=== PATIENT | female | born 1940 | race Caucasian/White ===

== ENCOUNTER 2017-12-06 00:42 | Inpatient (IN) | payer MEDICARE, OTHER ==
[2017-12-05 15:27] LABS: INR 1.01
[2017-12-06] VITALS (17 sets, daily range): BP systolic 113–158; BP diastolic 66–87
[~2017-12-06] VITALS: Ht 160 cm; Wt 65.8 kg
[~2017-12-06 00:42] MED LIST: DOCU-416 PO; GABA-549 PO; IBUP-56 PO; LACT10SO82 PO; LACT1CAP6 PO; MIRT-22 PO; MULT-1372 PO; OMEP-137 PO; OMEP40CA48 PO; [UNRECOGNIZED DRUG - CODE] TOP; [UNRECOGNIZED DRUG - CODE] TP
[2017-12-06] MEDS ORDERED: DEXAMETHASONE SOD 4 MG/ML VIAL ONE (08:02)
[2017-12-06] MEDS ORDERED: ONDANSETRON 4 MG/2 ML VIAL ONE (08:02)
[2017-12-06] MEDS ORDERED: LIDOCAINE MPF 1% 5 ML VIAL ONE (08:02)
[2017-12-06] MEDS ORDERED: PROPOFOL EMUL(*) 10MG/ML 20 ML 20 ML ONE (08:02)
[2017-12-06] MEDS ORDERED: TRANEXAMIC AC 1000 MG/10ML SDV 1,000 MG in DEXTROSE 5% 50 ML BAG 50 ML IV ONE (08:55)
[2017-12-06] MEDS ORDERED: MIDAZOLAM 2 MG/2 ML VIAL IVP PRN (08:55)
[2017-12-06] MEDS ORDERED: NORMOSOL R SOLN(*) 1000 ML BAG 1,000 ML IV PRN ×2 (08:55→12:50)
[2017-12-06] MEDS ORDERED: ceFAZolin(*) 1 GM VIAL 1 GM in NS(*) 0.9% 100 ML ADDVANT BAG 100 ML IVPB ONE (08:55)
[2017-12-06] MEDS ORDERED: cloNIDine EPIDUR INJ 100MCG/ML 40 MCG, ROPIVACAINE 0.5% 20 ML VIAL 25 ML, EPINEPHrine H... INJ ONE (08:55)
[2017-12-06] MEDS ORDERED: LIDOCAINE/SOD BICARB 8.4% SYR ID ONE (09:55)
[2017-12-06] MEDS ORDERED: fentaNYL CITR 100 MCG/2 ML AMP ONE (10:09)
[2017-12-06] MEDS ORDERED: PHENYLEPHRINE 10 MG/1 ML VIAL ONE ×2 (10:10→10:57)
[2017-12-06] MEDS ORDERED: NS(*) 0.9% 100 ML BAG 0 ML ONE (10:20)
[2017-12-06] MEDS ORDERED: ePHEDrine 25 MG/5 ML DISP.SYR IVP ONE (10:38)
[2017-12-06] MEDS ORDERED: NS(*) 0.9% 250 ML BAG 250 ML ONE (11:00)
[2017-12-06] MEDS ORDERED: MAGNESIUM HYDROXIDE* 30ML UDCP PO PRN (12:50)
[2017-12-06] MEDS ORDERED: FLUSH 10 ML SYR IVP PRN (12:50)
[2017-12-06] MEDS ORDERED: PROMETHAZINE 25 MG/ML 1 ML AMP IVP PRN (12:50)
[2017-12-06] MEDS ORDERED: APAP/HYDROCODONE 325/7.5 TAB PO PRN (12:50)
[2017-12-06] MEDS ORDERED: BISACODYL 10 MG SUPP PR PRN (12:50)
[2017-12-06] MEDS ORDERED: ONDANSETRON 4 MG/2 ML VIAL IVP PRN (12:50)
--- NOTE | 2017-12-06 13:12 | RADIOLOGY IMAGING REPORT ---
[place] [facility] [place] NAME: Nevaeh Trent : 1940 MR: [id number] V: [id number] EXAM DATE: ORDERING PHYSICIAN: KARON FREEDMAN TECHNOLOGIST: Location: [facility] Patient: Nevaeh Trent : 1940 Visit/Account:[id number] Date of Sevice: 12/06/2017 Technique: KNEE LIMITED LEFT HISTORY: POST OP LEFT TOTAL KNEE Comparison studies: None FINDINGS: There is no acute fracture. The alignment of the left knee is maintained. Noted is a left k nee arthroplasty. Lucency is seen within the distal left femur proximal left tibia consistent with pr evious hardware. Expected adjacent postoperative findings are identified. IMPRESSION: 1. Left knee arthroplasty without evidence of acute hardware complication. Report Dictated By: Sedrick Solorzano DO at 12/06/2017 1:06 PM Report E-Signed By: Sedrick Solorzano DO at 12/06/2017 1:07 PM WSN:[id number]
--- NOTE | 2017-12-06 14:35 | Hospitalist Progress Note ---
Subjective Progress Notes Subjective Patient seen post-op. She reports doing well. No CP/SOB/N/V. Reviewed PMHx and medications. Physical Exam Vital Signs Date Time Temp Pulse Resp B/P (MAP) Pulse Ox O2 Delivery O2 Flow Rate FiO2 12/06/17 13:45 97.7 69 16 131/77 (95) 96 Nasal Cannula 2.0 Intake and Output 12/07/17 07:00 Intake Total 1900 ml Output Total 600 ml Balance 1300 ml Intake IV Total 1900 ml Output Urine Total 600 ml General Appearance: Alert, Awake Cardiovascular: Regular Rate and Rhythm (with soft systolic murmur) Respiratory: Clear to Auscultation GI: Soft and Non-Tender Assessment and Plan Problems: (1) S/P knee replacement Status: Acute Assessment & Plan: She appears stable post-op. She has no history of DVT/PE. Will place on aspirin 325mg daily. (2) GERD (gastroesophageal reflux disease) Status: Chronic Assessment & Plan: Continue PPI therapy. Protonix while here (omeprazole at home). (3) Chronic back pain Status: Chronic Assessment & Plan: Continue gabapentin. UMA DE LA VEGA MD Dec 06, 2017 14:35
[2017-12-06] MEDS: traMADol 50 MG TAB PO PRN ×2 (15:05→21:26)
[2017-12-06] MEDS: ACETAMINOPHEN 500 MG TAB PO SCH ×3 (15:52→22:30)
[2017-12-06] MEDS ORDERED: ESZO1TAB PO (16:36)
[2017-12-06] MEDS ORDERED: ESZOPICLONE 2 MG TAB PO PRN (16:45)
[2017-12-06] MEDS: ceFAZolin 1 GM VIAL IVP SCH (17:13)
[2017-12-06] MEDS ORDERED: ASPIRIN 325 MG ENTERIC COATED PO ONE (21:00)
[2017-12-06] MEDS ORDERED: GABAPENTIN 100 MG CAP PO SCH (21:00)
[2017-12-06] MEDS: MIRTAZAPINE 15 MG TAB PO SCH (21:26)
[2017-12-07] VITALS (74 sets, daily range): BP systolic 72–164; BP diastolic 46–90; Ht 160 cm; Wt 65.8 kg
[2017-12-07] MEDS: ceFAZolin 1 GM VIAL IVP SCH (01:06)
[2017-12-07] MEDS: traMADol 50 MG TAB PO PRN ×5 (03:36→21:43)
[2017-12-07] MEDS: ACETAMINOPHEN 500 MG TAB PO SCH ×4 (03:36→21:00)
[2017-12-07] MEDS: GABAPENTIN 100 MG CAP PO SCH ×3 (08:19→18:00)
[2017-12-07] MEDS: ASPIRIN 325 MG ENTERIC COATED PO SCH (08:19)
[2017-12-07] MEDS: PANTOPRAZOLE SOD 40 MG TABEC PO SCH (08:19)
--- NOTE | 2017-12-07 08:29 | Hospitalist Progress Note ---
Subjective Progress Notes Subjective She reports doing well. She would like to leave Monge cath in place "until I see if I can make it to the bathroom". She usually does self-cath 4-6 times a day. Physical Exam Vital Signs Date Time Temp Pulse Resp B/P (MAP) Pulse Ox O2 Delivery O2 Flow Rate FiO2 12/07/17 08:02 97.7 73 18 124/72 (89) 95 Nasal Cannula 0.5 General Appearance: Alert, Awake Result Diagram: 12/07/17 0526 Assessment and Plan Problems: (1) S/P knee replacement Status: Acute Assessment & Plan: She appears stable post-op. She has no history of DVT/PE. She is on aspirin 325mg daily for DVT prophylaxis. Will leave Monge cath in place and resume self cath when mobilizing. (2) GERD (gastroesophageal reflux disease) Status: Chronic Assessment & Plan: Continue PPI therapy. Protonix while here (omeprazole at home). (3) Chronic back pain Status: Chronic Assessment & Plan: Continue gabapentin. Exam Sepsis Risk: No Definite Risk UMA DE LA VEGA MD Dec 07, 2017 08:29
--- NOTE | 2017-12-07 10:12 | EKG ---
FACILITY: [facility] PATIENT NAME: GILLIAN MÁRQUEZ : [id number] MR: [id number] V: [id number] EXAM DATE: ORDERING PHYSICIAN: UMA DE LA VEGA TECHNOLOGIST: Test Reason : Blood Pressure : / mmHG Vent. Rate : 071 BPM Atrial Rate : 071 BPM P-R Int : 130 ms QRS Dur : 086 ms QT Int : 410 ms P-R-T Axes : 038 040 058 degrees QTc Int : 445 ms Sinus rhythm Widespread T flattening is non-specific V6 absent Abnormal ECG No previous ECGs available Confirmed by VIOLET COLEMAN ([id number]) on 12/07/2017 10:25:41 AM Referred By: Confirmed By:VIOLET COLEMAN
[2017-12-07 10:16] LABS: PLATELET COUNT, AUTOMATED 189 K/uL (150-450)
[2017-12-07] MEDS ORDERED: IOPAMIDOL 76% 75 ML INFUS BTL 75 ML ONE (10:23)
[2017-12-07] MEDS ORDERED: NS 0.9% 150 ML BAG 150 ML ONE (10:23)
--- NOTE | 2017-12-07 10:24 | Hospitalist Progress Note ---
Subjective Progress Notes Subjective Patient had acute decompensation in status with unresponsiveness, no palpable pulse, no respirations, and hypoxia. She had chest compressions for approximately 30 seconds. She had spontaneous return of pulse, BP. She was placed on monitor and appeared to possibly have a junctional rhythm, but immediately had return to sinus rhythm. She did awaken and is able to answer questions and follow simple commands. Glucose was 96. Initial EKG showed sinus rhythm without significant ST-T changes. Physical Exam Vital Signs Date Time Temp Pulse Resp B/P (MAP) Pulse Ox O2 Delivery O2 Flow Rate FiO2 12/07/17 08:02 97.7 73 18 124/72 (89) 95 Nasal Cannula 0.5 General Appearance: Other (She prefers to keep eyes closed, but does answer questions and follow simple commands.) Neuro: Other (moves all four extremities purposefully) Cardiovascular: Regular Rate and Rhythm (with soft systolic murmur) Respiratory: Clear to Auscultation Chest: Other (tender over distal sternum) GI: Soft and Non-Tender Extremities: Warm, Perfused Result Diagram: 12/07/17 0526 Assessment and Plan Problems: (1) Cardiorespiratory arrest Status: Acute Assessment & Plan: She has had spontaneous return of circulation. She actually appears reasonably stable at this time. Will transfer to ICU for further evaluation. I would suspect possible dysrhythmia vs. PE vs. ischemic cardiac event. Check labs, including troponin. Get CT pulmonary angiogram. Monitor on telemetry. Further evaluation/treatment pending results. (2) S/P knee replacement Status: Acute Assessment & Plan: She has no history of DVT/PE. She has been on aspirin 325mg daily for DVT prophylaxis. Will leave Monge cath in place. (3) GERD (gastroesophageal reflux disease) Status: Chronic Assessment & Plan: Continue PPI therapy. Protonix while here (omeprazole at home). (4) Chronic back pain Status: Chronic Assessment & Plan: Continue gabapentin. Exam Sepsis Risk: No Definite Risk UMA DE LA VEGA MD Dec 07, 2017 10:23
[2017-12-07] MEDS ORDERED: KCL (*) 20 MEQ/100 ML PREMIX 100 ML IV ONE ×2 (10:25→13:00)
--- NOTE | 2017-12-07 10:29 | EKG ---
FACILITY: [facility] PATIENT NAME: GILLIAN MÁRQUEZ : [id number] MR: [id number] V: [id number] EXAM DATE: ORDERING PHYSICIAN: UMA DE LA VEGA TECHNOLOGIST: Bryan Cage Reason : Blood Pressure : / mmHG Vent. Rate : 069 BPM Atrial Rate : 069 BPM P-R Int : 130 ms QRS Dur : 084 ms QT Int : 430 ms P-R-T Axes : 000 168 093 degrees QTc Int : 460 ms Suspect arm lead reversal, interpretation assumes no reversal Normal sinus rhythm Possible Lateral infarct , age undetermined Abnormal ECG When compared with ECG of 07-DEC-2017 09:53, QRS axis shifted right Lateral infarct is now present Confirmed by MALGORZATA HALL ([id number]) on 12/07/2017 11:54:38 PM Referred By: Confirmed By:MALGORZATA HALL
--- NOTE | 2017-12-07 11:11 | RADIOLOGY IMAGING REPORT ---
FACILITY: [facility] [place] PATIENT NAME: Nevaeh Trent : 1940 MR: [id number] V: [id number] EXAM DATE: ORDERING PHYSICIAN: UMA DE LA VEGA TECHNOLOGIST: Location: [facility] [place] Patient: Nevaeh Trent : 1940 Visit/Account:[id number] Date of Sevice: 12/07/2017 CTA CHEST WW/O CNTR (PULM ANG) Provided history: cardiorespiratory arrest/recent knee surgery Additional pertinent history: none TECHNIQUE: Pulmonary embolus protocol - Thin-slice axial imaging of the chest was performed during maximal pulmo nary arterial opacification with intravenous nonionic iodinated contrast. 3D coronal slab MIPs and 2D reconstructions in the coronal and sagittal planes were performed to aid in pulmonary embolus detect ion. Geneticist images have been stored on PACS. EKG gating: no Contrast: 75 ml Isovue 370 One of the following dose optimization techniques was utilized in the performance of this exam: Autom ated exposure control; adjustment of the mA and/or kV according to the patient's size; or use of an i terative reconstruction technique. Specific details can be referenced in the facility's radiology C T exam operational policy. COMPARISON STUDIES: none FINDINGS: Angiographic Findings: Pulmonary arteries: There are no filling defects in the main, right, left, lobar, segmental or visual ized sub-segmental branches of the pulmonary arterial system. The main pulmonary artery is mildly prominent measuring 35 mm compared to 30 mm for the adjacent asce nding aorta. Thoracic aorta: negative. Additional non-angiographic findings: Lungs / pleura / angely: Mild symmetric dependent atelectasis. No acute infiltrate or effusion. Jacey tral airways are widely patent. Lower neck: 7 mm low-attenuation round nodule lower pole left lobe of the thyroid is very likely be nign. Mediastinum: negative Heart / pericardium: Mild biventricular enlargement and mild left atrial enlargement. No CT signs of right heart strain. Other Vessels: negative Body wall: negative Upper abdomen: Benign granulomata of the spleen. Lymph nodes: negative Bones: negative IMPRESSION: 1. No CT evidence of acute pulmonary embolism. 2. Enlarged central pulmonary arteries suggests pulmonary hypertension. Etiology unclear from this exam. No obvious shunt and no advanced destructive pulmonary parenchymal disease. Report Dictated By: Jamie Parker MD at 12/07/2017 10:58 AM Report E-Signed By: Jamie Parker MD at 12/07/2017 11:05 AM WSN:[id number]
[2017-12-07] MEDS: NS(*) 0.9% 1000 ML BAG 1,000 ML IV PRN ×3 (11:12→13:59)
[2017-12-07] MEDS ORDERED: APAP/HYDROCODONE 325/5 TAB PO PRN (11:15)
[2017-12-07] MEDS ORDERED: IV BOLUS 500 ML IVSOL IV ONE (13:20)
[2017-12-07] MEDS: MIRTAZAPINE 15 MG TAB PO SCH (21:42)
[2017-12-08] VITALS (25 sets, daily range): BP systolic 94–156; BP diastolic 45–107
[2017-12-08] MEDS: ACETAMINOPHEN 500 MG TAB PO SCH ×4 (03:00→20:48)
[2017-12-08] MEDS: traMADol 50 MG TAB PO PRN ×3 (04:05→22:41)
[2017-12-08] MEDS: NS(*) 0.9% 1000 ML BAG 1,000 ML IV PRN ×3 (04:07→21:32)
[2017-12-08 05:50] LABS: PLATELET COUNT, AUTOMATED 173 K/uL (150-450)
[2017-12-08] MEDS ORDERED: KCL (*) 20 MEQ/100 ML PREMIX 100 ML IV ONE (07:05)
[2017-12-08] MEDS: GABAPENTIN 100 MG CAP PO SCH ×3 (08:36→18:26)
[2017-12-08] MEDS: ASPIRIN 325 MG ENTERIC COATED PO SCH (08:37)
[2017-12-08] MEDS: PANTOPRAZOLE SOD 40 MG TABEC PO SCH (08:37)
--- NOTE | 2017-12-08 11:32 | Hospitalist Progress Note ---
Subjective Progress Notes Subjective This patient was admitted for knee replacement, but developed pulseless arrest yesterday. Patient Complains of: Cardiovascular: No: Chest Pain Respiratory: No: Shortness of Breath Physical Exam Vital Signs Date Time Temp Pulse Resp B/P (MAP) Pulse Ox O2 Delivery O2 Flow Rate FiO2 12/08/17 10:30 87 13 121/73 (89) 96 Nasal Cannula 1.0 12/08/17 08:00 98.0 Intake and Output 12/09/17 07:00 Intake Total 110 ml Output Total 600 ml Balance -490 ml Intake Oral 0 ml IV Total 110 ml Output Urine Total 600 ml Neuro: No Gross deficits Eyes: PERRLA Cardiovascular: Regular Rate and Rhythm Respiratory: Clear to Auscultation Extremities: No Edema Integumentary: No Cyanosis Result Diagram: 12/08/17 0512/08/17 05 Item Value Date Time Troponin I < 0.012 ng/ml 12/07/17 1429 Troponin I < 0.012 ng/ml 12/08/[address] chest reviewed. Assessment and Plan Problems: (1) Cardiorespiratory arrest Status: Acute Assessment & Plan: She developed pulseless arrest on postoperative day #1. She did receive compressions and had return of circulation. She remained stable in the ICU overnight. Her troponin series was negative. However, her EKG has shown changes consistent with infarction. A CT scan showed pulmonary hypertension, but no evidence of embolism. An echocardiogram has been ordered. She is on treatment with aspirin. (2) S/P knee replacement Status: Acute Assessment & Plan: She is on aspirin prophylaxis. (3) GERD (gastroesophageal reflux disease) Status: Chronic Assessment & Plan: She is on chronic treatment with Prilosec. (4) Chronic back pain Status: Chronic Assessment & Plan: She is on chronic treatment with gabapentin. Exam Sepsis Risk: No Definite Risk ANTONIA MURRAY DO Dec 08, 2017 11:32
--- NOTE | 2017-12-08 19:48 | OPERATIVE REPORT 1 ---
EVENT DATE: December 06, 2017 SURGEON: Joe Tristan MD ANESTHESIOLOGIST: Gamal Coleman MD ANESTHESIA: Spinal, followed by general. TRANSCRIBER: ALIDA Pollack PREOPERATIVE DIAGNOSIS Left knee degenerative joint disease. POSTOPERATIVE DIAGNOSIS Left knee degenerative joint disease. PROCEDURE PERFORMED Left total knee arthroplasty. IMPLANTS USED MicroPort medial pivot-shift CS system with a 5 femur, 5 tibia, and 12 mm CS insert, 32 x 8 symmetric patella. We also utilized two packages of DonJoy [place] Blue cement and ZipLine wound closure system. Dr. Coleman also gave 1 g of IV tranexamic acid at 10 minutes prior to start and at the end of the implantation. We also utilized 50 mL of our standard ropivacaine and Toradol cocktail. DESCRIPTION OF OPERATION The patient was brought to the OR after receiving appropriate preoperative antibiotics, and Dr. Coleman performed general anesthesia after spinal. A left thigh tourniquet was placed, but was not used. The left lower extremity was prepped and draped in the usual sterile fashion. A midline incision was made, followed by a medial parapatellar arthrotomy. The Bovie was utilized to dissect medially in a subperiosteal fashion to the level of the semimembranosus insertion. We excised the fat pad, released the patella, and everted this. The knee had eburnation in the medial compartment, high-grade changes in the patellofemoral compartment, and minimal changes in the lateral compartment. Significant spurring was noted around the femur. Remaining articular cartilage was removed from the distal femoral condyles by sagittal saw. The medialized step cut drill was used to broach the femur, and I placed our intramedullary micheal for our distal femoral cut. We set this at 6 degrees of valgus 10 mm with care taken to protect the soft tissue and made the distal cut. Z retractors were then placed, and then we placed our 3-degree external rotation guide referencing off the epicondyles, posterior condyles, and anterior flange, and sized the femur to a 5. I then placed our four-in-one cutting block and made our four cuts. Appropriate retractors were placed to bring the tibia anteriorly to the femur. We broached the tibial canal with the step cut drill, placed our intramedullary guide, referencing 10 mm off the minimally involved lateral tibial plateau and setting for rotation. We pinned our block into place. Appropriate retractors were placed to protect the soft tissue, and we made our tibial cut. This was sized to a 5. The stumps of the ACL, PCL, and meniscus were removed by Bovie. There were no significant posterior osteophytes. The capsule was elevated with the Kimble elevator. A trial tibial baseplate was placed referencing from the previous rotation. We placed a 12 mm insert and then our #5 femur. We achieved full extension, flexion about 140 degrees, and stability to varus and valgus stress at 90 degrees. We had a satisfactory drawer. We then drilled our peg holes and placed our pegs. A cut for our trochlear chip was then placed. The knee was brought out into full extension. The patella was sized to 24 mm. This was cut down 8 mm utilizing the guide. The peg hole guide was positioned inferiorly and medially, the peg holes drilled, and this accepted the 32 x 8 trial. Again, we noted zero to 140 degrees of range of motion, stability to varus and valgus stress, the patella tracked well, and the anterior drawer was solid at 90 degrees. The patella, tibia, and femur inserts were removed. Appropriate retractors were placed to bring the tibia anteriorly, and we set up our punch tower for the tibia. We cut , reamed, and punched. The instrumentation was removed. A bone plug was placed in the distal femur. We copiously irrigated by pulse lavage while I mixed two packages of DonJoy [place] Blue cement. We then injected 10 mL of our cocktail into the posterior capsule. We then placed the knee in the appropriate position, dried off the bones after irrigation once again, and cemented the tibia into place, followed by our 12 mm CS insert, then our femur. Excess cement was removed. The knee was brought into full extension with axial compression while we cemented the patella. It took 15-1/2 minutes for the cement to cure. Again, we had the aforementioned range of motion and stability and satisfactory tracking of the patella. We copiously irrigated once again and injected the remaining 40 mL of our cocktail. This was in the distal quad mechanism. We then placed the knee in 30 degrees, closed the arthrotomy with #2 Vicryl in a lewijl-lw-edgfj suture fashion, followed by 2-0 Vicryl for the subcutaneous tissues, and then with the knee bent at 45 degrees, the ZipLine wound closure system. A compressive dressing was applied in full extension. The patient was extubated and taken to recovery in stable condition. PLAN The hospitalist team will be consulted for medical management and anticoagulation, PT and OT for rehab. TAMANNA
[2017-12-08] MEDS: MIRTAZAPINE 15 MG TAB PO SCH (20:46)
[2017-12-09 03:15] VITALS: BP 140/87
[2017-12-09] MEDS: ACETAMINOPHEN 500 MG TAB PO SCH ×3 (03:16→17:14)
[2017-12-09] MEDS: traMADol 50 MG TAB PO PRN (05:52)
[2017-12-09] MEDS: NS(*) 0.9% 1000 ML BAG 1,000 ML IV PRN (05:52)
[2017-12-09 07:15] VITALS: BP 140/75
[2017-12-09] MEDS: ASPIRIN 325 MG ENTERIC COATED PO SCH (08:36)
[2017-12-09] MEDS: PANTOPRAZOLE SOD 40 MG TABEC PO SCH (08:36)
[2017-12-09] MEDS: GABAPENTIN 100 MG CAP PO SCH ×3 (08:38→17:16)
[2017-12-09 09:24] VITALS: BP 127/66
[2017-12-09] MEDS: POTASSIUM CHL 10 MEQ TABCR PO SCH ×2 (11:40→20:46)
[2017-12-09] MEDS: CELECOXIB 200 MG CAP PO PRN (11:40)
--- NOTE | 2017-12-09 14:03 | Hospitalist Progress Note ---
Subjective Progress Notes Subjective She denies cp/sob. She had an episode of dizziness with ambulation. Physical Exam Vital Signs Date Time Temp Pulse Resp B/P (MAP) Pulse Ox O2 Delivery O2 Flow Rate FiO2 12/09/17 09:24 83 127/66 (86) 94 Nasal Cannula 0.5 12/09/17 07:15 97.8 16 Intake and Output 12/10/17 07:00 Intake Total 544 ml Balance 544 ml Intake Oral 120 ml IV Total 424 ml # Voids 1 # Bowel Movements 1 General Appearance: Alert, Awake, No Acute Distress Cardiovascular: Regular Rate and Rhythm Respiratory: Clear to Auscultation Chest: Other (Chest is diffusely sore with pressure on the sternum and then palpation) Result Diagram: 12/08/1751012/08/17510 Assessment and Plan Problems: (1) Cardiorespiratory arrest Status: Acute Assessment & Plan: She developed pulseless arrest on postoperative day #1. She did receive compressions and had return of circulation. She remained stable in the ICU overnight. Her troponin series was negative. However, her EKG has shown changes consistent with infarction. A CT scan showed pulmonary hypertension, but no evidence of embolism. An echocardiogram showed an EF of 53 % and no wall motion abnormalities. She is on treatment with aspirin. (2) S/P knee replacement Status: Acute Assessment & Plan: She is on aspirin prophylaxis. (3) GERD (gastroesophageal reflux disease) Status: Chronic Assessment & Plan: She is on chronic treatment with Prilosec. (4) Chronic back pain Status: Chronic Assessment & Plan: She is on chronic treatment with gabapentin. Exam Sepsis Risk: No Definite Risk SHILO PAUL MD Dec 09, 2017 14:03
[2017-12-09 15:03] VITALS: BP 130/65
--- NOTE | 2017-12-09 16:42 | RADIOLOGY IMAGING REPORT ---
[place] [facility] [place] NAME: GILLIAN MÁRQUEZ : [id number] MR: [id number] V: [id number] EXAM DATE: ORDERING PHYSICIAN: ANTONIA MURRAY TECHNOLOGIST: Perri Argueta EXAMINATION:TWO-DIMENSIONAL ECHOCARDIOGRAPH REASON:PULMONARY HYPERTENSION AND PATIENT CODED YESTERDAY. 2D Measurements (normal values in centimeters) LV endLV endRV endVent.LV PostAorticLeftPercent DiastolicSystolicDiastolicSeptumWallRootAtriumShortening (3.5-5.7)(0.9-2.6)(0.6-1.1)(0.6-1.1)(2.0-3.7)(1.9-4.0)(25-35%) [id number] STROKE VOLUME: 54 mL ESTIMATED EJECTION FRACTION: 53% PARASTERNAL LONG AXIS: Overall left ventricular systolic function appears to be normal as well right ventricular function. The chamber sizes are normal. Color examination of the valves reveals a trace amount of mitral insufficiency in this view. No wall motion abnormalities were noted. PARASTERNAL SHORT AXIS: Again overall left ventricular function appears to be within normal ranges. No wall motion abnormalities were noted. The aortic valve is trileaflet in configuration and appears to open normally. Color examination of the aortic valve was unremarkable. Color examination of the pulmonic valve was unremarkable. The pulmonic valve was not well seen. Color examination of the tricuspid valve revealed a mild amount of tricuspid insufficiency. APICAL FOUR AND TWO CHAMBER: Normal left ventricular ejection fraction, normal right sided function. The chamber sizes are normal. Aortic valve area and mitral valve area both measure within normal ranges at 2.5 and 2.8cm2 respectively. The left atrial and right atrial volumes are measured within normal ranges at 21 and 12.5ml/m2. Tricuspid regurgitation Vmax was measured at 3.27m/sec. The estimated right atrial pressure is 3mm Hg. SUBCOSTAL VIEW: No pericardial effusion was noted. No atrial septal or ventricular septal defects were appreciated. Doppler examination of the mitral valve in diastole does reveal the A wave>E wave. IVC is normal in size. OVERALL IMPRESSION: 1. Normal left ventricular ejection fraction of 53% with a Grade 1 decrease in diastolic function. 2. Normal chamber sizes. 3. No wall motion abnormalities are noted. 4. Borderline left ventricular hypertrophies, eccentric more along the posterior wall no evidence for any outflow tract obstruction. 5. A trileaflet aortic valve with no abnormalities. 6. A trace of mitral insufficiency. 7. There is a mild amount of tricuspid insufficiency with estimated right ventricular systolic pressures at 46mm Hg indicating moderate pulmonary hypertension and increase right ventricular systolic pressures. 8. No abnormalities of the pulmonic valve were seen but the pulmonic valve was not well seen. Dictated by: Anitha Cortes M.D. on 12/08/2017 at 17:23 Transcribed by: DAVID on 12/09/2017 at 8:46 Approved by: Anitha Cortes M.D. on 12/09/2017 at 16:41 [facility]
[2017-12-09 19:19] VITALS: BP 139/69
[2017-12-09] MEDS: MIRTAZAPINE 15 MG TAB PO SCH (20:46)
[2017-12-09 22:24] VITALS: BP 107/88
[2017-12-10] MEDS: CELECOXIB 200 MG CAP PO PRN ×2 (00:53→13:29)
[2017-12-10] MEDS: ACETAMINOPHEN 500 MG TAB PO SCH ×4 (00:54→17:19)
[2017-12-10 03:38] VITALS: BP 148/80
[2017-12-10 07:47] VITALS: BP 137/80
[2017-12-10] MEDS: ASPIRIN 325 MG ENTERIC COATED PO SCH (08:44)
[2017-12-10] MEDS: GABAPENTIN 100 MG CAP PO SCH ×3 (08:44→17:18)
[2017-12-10] MEDS: PANTOPRAZOLE SOD 40 MG TABEC PO SCH (08:45)
[2017-12-10] MEDS: POTASSIUM CHL 10 MEQ TABCR PO SCH (08:45)
[2017-12-10] MEDS ORDERED: ASPI-764 PO (09:25)
[2017-12-10] MEDS ORDERED: CELE200C7 PO (09:39)
[2017-12-10] MEDS ORDERED: ACET-2043 PO (09:39)
--- NOTE | 2017-12-10 09:40 | Hospitalist Progress Note ---
Subjective Progress Notes Subjective No cp/sob. No problems overnight. No dizziness with ambulation. Physical Exam Vital Signs Date Time Temp Pulse Resp B/P (MAP) Pulse Ox O2 Delivery O2 Flow Rate FiO2 12/10/17 07:47 98.4 81 16 137/80 (99) 93 Nasal Cannula 0.3 General Appearance: Alert, Awake, No Acute Distress Result Diagram: 12/08/17 0511 12/10/17 0544 Imaging 12/08/17 Echo - 1. Normal left ventricular ejection fraction of 53% with a Grade 1 decrease in diastolic function. 2. Normal chamber sizes. 3. No wall motion abnormalities are noted. 4. Borderline left ventricular hypertrophies, eccentric more along the posterior wall no evidence for any outflow tract obstruction. 5. A trileaflet aortic valve with no abnormalities. 6. A trace of mitral insufficiency. 7. There is a mild amount of tricuspid insufficiency with estimated right ventricular systolic pressures at 46mm Hg indicating moderate pulmonary hypertension and increase right ventricular systolic pressures. 8. No abnormalities of the pulmonic valve were seen but the pulmonic valve was not well seen. 12/07/17 CTA of chest - 1. No CT evidence of acute pulmonary embolism. 2. Enlarged central pulmonary arteries suggests pulmonary hypertension. Etiology unclear from this exam. No obvious shunt and no advanced destructive pulmonary parenchymal disease. Assessment and Plan Problems: (1) Cardiorespiratory arrest Status: Acute Assessment & Plan: She developed pulseless arrest on postoperative day #1. She did receive compressions and had return of circulation within one cycle. She remained stable in the ICU overnight and hasn't had anymore problems. Her troponin series was negative. Her EKG showed some mild T inversion inferiorly that was new, but was otherwise unchanged from previous. A CT scan showed pulmonary hypertension, but no evidence of embolism. An echocardiogram showed an EF of 53% and no wall motion abnormalities. It appears that she might have had a very profound vagal event that was exacerbated by anesthesia and narcotics. She has been encouraged to follow up with Cardiology to complete the work up. (2) S/P knee replacement Status: Acute Assessment & Plan: No current CV/pulmonary issues. She will be on aspirin 325mg a day for DVT prophylaxis for 30 days after surgery. She seems to be doing well with Celebrex and Tylenol for pain. The Tramadol seemed to make her dizzy. (3) GERD (gastroesophageal reflux disease) Status: Chronic Assessment & Plan: She is on chronic treatment with Prilosec. (4) Chronic back pain Status: Chronic Assessment & Plan: She is on chronic treatment with gabapentin. Exam Sepsis Risk: No Definite Risk Problem Qualifiers (1) S/P knee replacement: Laterality: left Qualified Codes: Z96.652 - Presence of left artificial knee joint SHILO PAUL MD Dec 10, 2017 09:40
[2017-12-10 11:01] VITALS: BP 140/75
== END 2017-12-10 18:30 | disposition home or self-care (01) | DRG 470 ==
LOC: OR 00:42 → MED 13:45 → ICU 12-07 10:06 → MED 12-08 15:00
PROVIDERS: ADMIT Orthopaedic Surgery; ATTEND Orthopaedic Surgery
PROC: 0SRD0J9 Replacement of Left Knee Joint with Synthetic Substitute, Cemented, Open Approach (ICD-10-PCS; principal; 2017-12-06 10:17)
PROC: 5A12012 Performance of Cardiac Output, Single, Manual (ICD-10-PCS; 2017-12-07)
DX: M17.12 Unilateral primary osteoarthritis, left knee (principal); I97.121 Postprocedural cardiac arrest following other surgery; K21.9 Gastro-esophageal reflux disease without esophagitis; G89.29 Other chronic pain; R09.02 Hypoxemia; I27.20 Pulmonary hypertension, unspecified; T40.605A Adverse effect of unspecified narcotics, initial encounter; T41.205A Adverse effect of unspecified general anesthetics, initial encounter; Y83.8 Other surgical procedures as the cause of abnormal reaction of the patient, or of later complication, without mention of misadventure at the time of the procedure; Y79.3 Surgical instruments, materials and orthopedic devices (including sutures) associated with adverse incidents; Y92.230 Patient room in hospital as the place of occurrence of the external cause; Z90.49 Acquired absence of other specified parts of digestive tract; Z85.828 Personal history of other malignant neoplasm of skin; Z88.5 Allergy status to narcotic agent; Z88.8 Allergy status to other drugs, medicaments and biological substances; Z98.1 Arthrodesis status
CPT/HCPCS: 36415; 36416; 36600; 71275; 82040; 82247; 82310; 82374; 82435; 82565; 82803; 82947; 82948; 83735; 84075; 84132; 84155; 84295; 84450; 84460; 84484; 84520; 85014; 85018; 85025; 85610; 86850; 86900; 86901; 93005; 93306; 97162; C1713; C1776; J0171; J0690; J0735; J1100; J1885; J2001; J2250; J2370; J2405; J2704; J2795; J3010; J3480; J7030; J7050; J7060; Q9967